=== PATIENT | male | born 1950 | race Caucasian/White ===

== ENCOUNTER 2023-04-18 17:01 | Emergency (ER) | payer OTHER ==
--- OUTSIDE RECORDS SUMMARY | 2023-04-18 17:05 | XMS REPORT | Continuity of Care Document ---
:1950 Author Organization [facility] t Address [address] [place] [address] [id number] Care Team Providers Name Role Phone Troy Sánchez DO Darek Primary Care Physician [phone] GC_[email or web address]_Gonzalo_ Attending Clinician Unavailable Nereida WONG, Kassi Uribe Attending Clinician [phone] Jb WONG, Michelle Attending Clinician GC_GCEDWARD_Gonzalo_ Admitting Clinician Unavailable Quang WONG, Kamari Unavailable Payers Payer Name Policy Type Policy Number Effective Date Expiration Date S ource $00 C [id number] 2020 00:00:00 Problems Condition Condition Condition Status Onset Resolution Last Treating Co mments Source Name Details Category Date Date Treatment Clinician Date COVID-19 COVID-19 81075-5 Active 2021-04-12 Quang, (U07.1) 04-12 18:27:59 Kamari (079.89)Pr 00:00: ognosis: 00 Encounter start time: 546Encount er end time: 551 as of 1Onset: MD Kamari Sierra Allergies, Adverse Reactions, Alerts Allergy Allergy Status Severity Reaction(s) Onset Inactive Treating Comm ents Source Name Type Date Date Clinician No Known Allergy Active Drug 04-12 Allergie 00:00: s 00 NO KNOWN [facility] Social History Social Habit Start Date Stop Date Quantity Comments Source History SDOH [facility] Alcohol Comment Medical C enter History SDOH [facility] Alcohol Std Drinks Medica [facility] Center History SDOH [facility] Alcohol Binge [facility] [address] No Known Social History Alcohol intake 2021-04-07 2021-04-07 [facility] (finding) Tobacco use and 2020-07-14 2020-07-[address] [facility] exposure 00:00:00 00:00:00 Medical Center History SDOH 2020-07-14 2020-07-[address] [facility] Alcohol Frequency 00:00:00 00:00:00 [facility] Center Sex Assigned At [address] [facility] 00:00:00 00:00:00 Medical Center Smoking Status Start Date Stop Date Source Tobacco smoking consumption unknown Never smoked tobacco [facility] Medications Ordered Filled Start Stop Current Ordering Indication Dosage Frequency Signature Comments Components Source Medication Medication Date Date Medication? Clinician (SIG) Name Name No Known No No Known Historical 04-12 Historical Medications 17:49: Medication 44 s benzonatate 2020- No 100mg Take [address] (TESSALON) 04-07- [facility] 100 MG 00:00: 23:59 (100 mg Medical capsule 00 :00 total) by Center mouth every 8 (eight) hours for 7 days. benzonatate 2020- No 100mg Take [address] (TESSALON) 04-07- [facility] 100 MG 00:00: 23:59 (100 mg Medical capsule 00 :00 total) by Center mouth every 8 (eight) hours for 7 days. AZITHROmyci 2020- No 250mg QD Take [address] [facility] 04-07 tablet [facility] (ZITHROMAX) 00:00: 23:59 (250 mg Me dical 250 MG 00 :00 total) by Center tablet mouth daily for 5 days Take first 2 tablets together, then 1 every day until finished.. AZITHROmyci No 250mg QD Take [address] [facility] 04-07 tablet [facility] (ZITHROMAX) 00:00: 23:59 (250 mg Me dical 250 MG 00 :00 total) by Center tablet mouth daily for 5 days Take first 2 tablets together, then 1 every day until finished.. promethazin No 25mg Take [address] [facility] [facility] 04[facility] tablet (25 [facility] (PHENERGAN) 00:00: 23:59 mg total) Medical 25 MG 00 :00 by mouth Center tablet every 8 (eight) hours as needed for Nausea for up to 5 days. promethazin No 25mg Take [address] [facility] [facility] 04-[facility] tablet (25 [facility] (PHENERGAN) 00:00: 23:59 mg total) Medical 25 MG 00 :00 by mouth Center tablet every 8 (eight) hours as needed for Nausea for up to 5 days. Vital Signs Vital Name Observation Time Observation Value Comments Source Pulse 2021-04-12 18:18:45 81 /min Pattern: Regular O2 SAT 2021-04-12 18:18:45 93 % Room air HEIGHT 2021-04-07 20:08:00 157.5 cm WEIGHT 2021-04-07 20:08:00 58.968 kg HEIGHT 2021-04-07 20:08:00 157.5 cm WEIGHT 2021-04-07 20:08:00 58.968 kg HEIGHT 2021-04-02 23:55:00 157.5 cm WEIGHT 2021-04-02 23:55:00 58.968 kg HEIGHT 2021-04-02 23:55:00 157.5 cm WEIGHT 2021-04-02 23:55:00 58.968 kg HEIGHT 2020-07-14 00:00:00 158 cm WEIGHT 2020-07-14 00:00:00 58.06 kg Systolic blood 2021-04-07 22:15:00 157 mm[Hg] ANTON Eddychi [facility] pressure Medical Center Diastolic blood 2021-04-07 22:15:00 93 mm[Hg] ANTON S t Caridadchi [facility] pressure Medical Center Oxygen saturation 2021-04-07 22:15:00 94 /min ANTON Castillo in Arterial blood Medical nter by Pulse oximetry Heart rate 2021-04-07 20:08:00 86 /min [facility] Body temperature 2021-04-07 20:08:00 36.5 Jordyn [facility] Respiratory rate 2021-04-07 20:08:00 18 /min [facility] Body height 2021-04-07 20:08:00 157.5 cm [facility] Body weight 2021-04-07 20:08:00 58.968 kg [facility] BMI 2021-04-07 20:08:00 23.78 kg/m2 [facility] Procedures Procedure Date / Time Performing Clinician Source Performed SERVICE(S) PROVIDED IN THE 2021-04-12 00:00:00 Kamari Del Rio OFFICE DURING REGULARLY SCHEDULED EVENING, WEEKEND, OR HOLIDAY OFFICE HOURS, IN ADDITION TO BASIC SERVICE ([id number]) PULSE OXIMETRY OF FINGER 2021-04-12 00:00:00 Kamari Del Rio ([id number]) URINALYSIS W/ REFLEX URINE 2021-04-07 21:43:00 Kassi Padron [facility] CULTURE [facility] CBC W/PLT COUNT & AUTO 2021-04-07 21:11:00 Kassi Padron [facility] COMPREHENSIVE METABOLIC 2021-04-07 21:11:00 Kassi Padron [facility] TROPONIN I 2021-04-07 21:11:00 Kassi Padron [facility] MAGNESIUM 2021-04-07 21:11:00 Kassi Padron [facility] CBC W/PLT COUNT & AUTO 2021-04-07 21:11:00 Kassi Padron [facility] XR CHEST 1 VIEW PORTABLE / 2021-04-07 21:02:00 Kassi Padron [facility] BEDSIDE [facility] ECG 12-LEAD 2021-04-07 20:48:53 Kassi Padron [facility] ED ECG INTERPRETATION 2021-04-07 20:44:58 Kassi Padron [facility] REPORT OF PROCEDURE - 2021-04-07 00:00:00 Provider, Default [facility] ENDOSCOPY SCAN Scanning [facility] ECG 12-LEAD 2021-04-03 01:44:52 Michelle Muhammad [facility] ECG 12-LEAD 2021-04-03 01:44:52 Unknown, Hl7 Doctor [facility] URINALYSIS W/ REFLEX URINE 2021-04-03 01:43:00 Michelle Muhammad [facility] CULTURE [facility] CBC W/PLT COUNT & AUTO 2021-04-03 01:30:00 Michelle Muhammad [facility] COMPREHENSIVE METABOLIC 2021-04-03 01:30:00 Jb [facility] PANEL [facility] Center MAGNESIUM 2021-04-03 01:30:[address] [facility] TROPONIN I 2021-04-03 01:30:[address] [facility] D-DIMER 2021-04-03 01:30:[address] [facility] CBC W/PLT COUNT & AUTO 2021-04-03 01:30:00 Michelle Muhammad [facility] XR CHEST 1 VIEW PORTABLE / 2021-04-03 00:45:00 Michelle Muhammad [facility] BEDSIDE [facility] Center REPORT OF PROCEDURE - 2021-04-02 00:00:00 Provider, Guy [facility] ENDOSCOPY SCAN Scanning [facility] Plan of Care Planned Activity Planned Date Details Comments Source Future Scheduled 2023-07-[address] [facility] Test 00:00:00 (Season Ended) [code = [facility] Center INFLUENZA VACCINE (Season Ended)] Future Scheduled 2022-11-[address] [facility] Test 00:00:00 (12+) [code = Medical Center DEPRESSION SCREENING (12+)] Future Scheduled 2022-11-16 FALLS RISK SCREENING [facility] Test 00:00:00 [code = FALLS RISK Medical C enter SCREENING] Future Scheduled 2022-04-[address] [facility] Test 00:00:00 Counseling and Medical Cente r Screening (12+) [code = Tobacco Cessation Counseling and Screening (12+)] Future Scheduled 2021-11-17 MEDICARE ANNUAL [facility] Test 00:00:00 WELLNESS (YEAR 2 or Medical Center FIRST YEAR if no IPPE) [code = MEDICARE ANNUAL WELLNESS (YEAR 2 or FIRST YEAR if no IPPE)] Future Scheduled 2021-07-17 INFLUENZA VACCINE (#1) [facility]00 [code = INFLUENZA Medical Ce nter VACCINE (#1)] Future Scheduled 2021-07-17 INFLUENZA VACCINE (#1) [facility] 00:00:00 [code = INFLUENZA Medical Ce nter VACCINE (#1)] Future Scheduled 2020-11-[address] [facility] Test 00:00:00 (12+) [code = Medical Center DEPRESSION SCREENING (12+)] Future Scheduled 2020-11-16 FALLS RISK SCREENING [facility] Test 00:00:00 [code = FALLS RISK Medical C enter SCREENING] Future Scheduled 2020-11-16 Medicare IPPE (WELCOME [facility] 00:00:00 TO MEDICARE) [code = Medical Center Medicare IPPE (WELCOME TO MEDICARE)] Future Scheduled 2020-11-[address] [facility] Test 00:00:00 (12+) [code = Medical Center DEPRESSION SCREENING (12+)] Future Scheduled 2020-11-16 FALLS RISK SCREENING [facility] Test 00:00:00 [code = FALLS RISK Medical C enter SCREENING] Future Scheduled 2020-11-16 Medicare IPPE (WELCOME [facility] Test 00:00:00 TO MEDICARE) [code = Medical Center Medicare IPPE (WELCOME TO MEDICARE)] Future Scheduled 2015 PNEUMOCOCCAL 65+ YRS ([address] [facility] Test 00:00:00 - PCV) [code = Medical Cente r PNEUMOCOCCAL 65+ YRS (1 - PCV)] Future Scheduled 2015 PNEUMOCOCCAL 65+ YRS ([address] [facility] Test 00:00:00 of 1 - [id number]_Wrrhyny Medica l Center PCV13) [code = PNEUMOCOCCAL 65+ YRS (1 of 1 - [id number]_Rkumefq PCV13)] Future Scheduled 2015 PNEUMOCOCCAL 65+ YRS ([address] [facility] Test 00:00:00 of 1 - [id number]_Vhvppqd Medica l Center PCV13) [code = PNEUMOCOCCAL 65+ YRS (1 of 1 - [id number]_[id number] PCV13)] Future Scheduled 2000 SHINGLES VACCINES ([address] [facility] Test 00:00:00 2) [code = SHINGLES Medical Center VACCINES (1 of 2)] Future Scheduled 2000 SHINGLES VACCINES ([address] [facility] Test 00:00:00 2) [code = SHINGLES Medical Center VACCINES (1 of 2)] Future Scheduled 2000 SHINGLES VACCINES ([address] [facility] Test 00:00:00 2) [code = SHINGLES Medical Center VACCINES (1 of 2)] Future Scheduled 1969 DTAP/TDAP/TD VACCINES [facility] 00:00:00 (1 - Tdap) [code = Medical C enter DTAP/TDAP/TD VACCINES (1 - Tdap)] Future Scheduled 1969 DTAP/TDAP/TD VACCINES [facility] 00:00:00 (1 - Tdap) [code = Medical C enter DTAP/TDAP/TD VACCINES (1 - Tdap)] Future Scheduled 1969 DTAP/TDAP/TD VACCINES [facility] Test 00:00:00 (1 - Tdap) [code = Medical C enter DTAP/TDAP/TD VACCINES (1 - Tdap)] Future Scheduled 1968 HEPATITIS C SCREENING [facility] 00:00:00 [code = HEPATITIS C Medical Center SCREENING] Future Scheduled 1968 HEPATITIS C SCREENING [facility] 00:00:00 [code = HEPATITIS C Medical Center SCREENING] Future Scheduled 1968 HEPATITIS C SCREENING [facility] 00:00:00 [code = HEPATITIS C Medical Center SCREENING] Future Scheduled 1962 COVID-19 VACCINE (1) [facility] Test 00:00:00 [code = COVID-[address] VACCINE (1)] Future Scheduled 1962 COVID-19 VACCINE (1) [facility] Test 00:00:00 [code = COVID-[address] VACCINE (1)] Future Scheduled 1950 COVID-19 VACCINE (#1) [facility] 00:00:00 [code = COVID-[address] VACCINE (#1)] Future Scheduled 1950 CT Colonography (combo) [facility] Test 00:00:00 [code = CT Colonography [facility] (combo)] Future Scheduled 1950 Screening for malignant [facility] Test 00:00:00 neoplasm of colon Medical Ce nter (procedure) [code = 451197961] Future Scheduled 1950 Screening for malignant [facility] Test 00:00:00 neoplasm of colon Medical Ce nter (procedure) [code = 819515049] Future Scheduled 1950 Screening for malignant [facility] Test 00:00:00 neoplasm of colon Medical Ce nter (procedure) [code = 729831648] Future Scheduled 1950 Screening for malignant [facility] Test 00:00:00 neoplasm of colon Medical Ce nter (procedure) [code = 206865719] Future Scheduled 1950 Sigmoidoscopy [code = [facility]00 Sigmoidoscopy] Medical Cente r Future Scheduled 1950 Screening for malignant [facility] Test 00:00:00 neoplasm of colon Medical Ce nter (procedure) [code = 387720556] Future Scheduled 1950 Screening for malignant [facility] Test 00:00:00 neoplasm of colon Medical Ce nter (procedure) [code = 295339962] Encounters Start End Encounter Admission Attending Care Care Encounter Source Date/Time Date/Time Type Type Clinicians Facility Department ID 2022-02-08 Outpatient [facility] [id number] [place] 14:11:19 [id number] [facility] 2023-03-01 2023-03-01 Outpatient GC_GCFMAC_H PRIV PRIV [id number] [facility] 00:00:00 00:00:00 allbauer_ [id number] [facility] 2021-04-12 2021-04-12 Virtual 0 Telehealth [id number] 552 17:43:18 18:28:09 Visit 43 2021-04-07 2021-04-[address] [facility] [id number] 20:22[facility]00 22:47:00 [facility]-04-[facility] 2021-04-07 Emergency ER [facility] Emergency [id number] [facility] 19:52:00 19:52:00 2021-04-02 2021-04-03 Emergency ER Jb, [facility] [id number] 23:58:00 04:48:00 Michelle [facility] 2021-04-03 2021-04-[address] [facility] [id number] 00:00:00 00:00:00 Only [facility] 2021-04-02 2021-04-02 Emergency ER [facility] Emergency [id number] [facility] 23:48:00 23:48:00 2021-04-02 2021-04-02 Travel [facility] [id number] [facility] 00:[facility]:00 00:00:00 [facility] 2020-07-14 2020-07-14 Emergency ER [facility] Emergency [id number] [facility] 14:51:00 14:51:00 Results Test Description Test Time Test Comments Results Result Comments Source Rapid covid antigen swab (07070) 2021-04-12 00:00:00 Test Item Value Reference Range Interpretation Comme nts Rapid covid antigen swab (test code = 16514-4) Positive N Urinalysis w/Microscopic + Reflex to [id number] 22:24:00 Test Item Value Reference Range Interpretation Comments Color, UA (test code Yellow = 5778-6) Clarity, UA (test Hazy code = 5767-9) Specific [place], UA 1.026 1.001-1.035 (test code = 5811-5) pH, UA (test code = 6.0 5.0-8.0 5803-2) Protein, UA (test >500 mg/dL Negative A code = 81853-0) Glucose, UA (test Negative Negative code = 365) Ketones, UA (test 80 mg/dL Negative A code = 2514-8) Bilirubin, UA (test Negative Negative code = 33313-1) Blood, UA (test code Negative Negative = 14239-3) Nitrite, UA (test Negative Negative code = 5802-4) Leukocytes, UA (test Negative Negative code = 5799-2) Urobilinogen, UA 2.0 mg/dL 0.2-1.0 H (test code = 11421-9) RBC, UA (test code = 1 See_Comment [Autom ated 27670-5) message] The system which generated this result transmit thad reference range : /HPF. The reference range was not used to interpret this result as normal/abnormal . WBC, UA (test code = 3 See_Comment [Autom ated 5821-4) message] The system which generated this result transmit thad reference range : /HPF. The reference range was not used to interpret this result as normal/abnormal . Bacteria, UA (test Rare code = 83519-4) Mucus (test code = Many 8247-9) Squam Epithel, UA <1 See_Comment [Automate d (test code = 13275-9) messag e] The system which generated this result transmit thad reference range : /HPF. The reference range was not used to interpret this result as normal/abnormal . Specimen Source (test code = 2795) IONA (test code = IONA) Portable Canteen Operator ID - [auto]Portable Canteen Operator ID - tech Lab Interpretation Abnormal (test code = 65965-4) [facility] + Reflex to Culture 2021-04-07 22:24:00 Test Item Value Reference Range Interpretation Comments Color, UA (test code Yellow = 5778-6) Clarity, UA (test Hazy code = 5767-9) Specific [place], UA 1.026 1.001-1.035 (test code = 5811-5) pH, UA (test code = 6.0 5.0-8.0 5803-2) Protein, UA (test >500 mg/dL Negative A code = 73718-8) Glucose, UA (test Negative Negative code = 365) Ketones, UA (test 80 mg/dL Negative A code = 2514-8) Bilirubin, UA (test Negative Negative code = 52032-1) Blood, UA (test code Negative Negative = 98230-9) Nitrite, UA (test Negative Negative code = 5802-4) Leukocytes, UA (test Negative Negative code = 5799-2) Urobilinogen, UA 2.0 mg/dL 0.2-1.0 H (test code = 34650-1) RBC, UA (test code = 1 See_Comment [Autom ated 73846-2) message] The system which generated this result transmit thad reference range : /HPF. The reference range was not used to interpret this result as normal/abnormal . WBC, UA (test code = 3 See_Comment [Autom ated 5821-4) message] The system which generated this result transmit thad reference range : /HPF. The reference range was not used to interpret this result as normal/abnormal . Bacteria, UA (test Rare code = 24523-9) Mucus (test code = Many 8247-9) Squam Epithel, UA <1 See_Comment [Automate d (test code = 57666-9) messag e] The system which generated this result transmit thad reference range : /HPF. The reference range was not used to interpret this result as normal/abnormal . Specimen Source (test code = 2795) IONA (test code = IONA) Portable Canteen Operator ID - [auto]Portable Canteen Operator ID - tech Lab Interpretation Abnormal (test code = 03465-1) [facility] [id number] 22:24:00 Test Item Value Reference Range Interpretation Comments COLOR (BEAKER) (test code = 470) Yellow CLARITY (BEAKER) (test code = 469) Hazy SPECIFIC GRAVITY UA (BEAKER) (test 1.026 1.001-1.035 code = 468) PH UA (BEAKER) (test code = 467) 6.0 5.0-8.0 PROTEIN UA (BEAKER) (test code = >500 mg/dL Negative A 464) GLUCOSE UA (BEAKER) (test code = Negative Negative 365) KETONES UA (BEAKER) (test code = 80 mg/dL Negative A 371) BILIRUBIN UA (BEAKER) (test code = Negative Negative 462) BLOOD UA (BEAKER) (test code = Negative Negative 461) NITRITE UA (BEAKER) (test code = Negative Negative 465) LEUKOCYTE ESTERASE UA (BEAKER) Negative Negative (test code = 466) UROBILINOGEN UA (BEAKER) (test 2.0 mg/dL 0.2-1.0 H code = 463) RBC UA (BEAKER) (test code = 519) 1 /HPF WBC UA (BEAKER) (test code = 520) 3 /HPF BACTERIA (BEAKER) (test code = Rare 517) MUCUS (BEAKER) (test code = 1574) Many SQUAMOUS EPITHELIAL (BEAKER) (test < /HPF code = 516) SOURCE(BEAKER) (test code = 2795) Portable Canteen Operator ID - [auto]Portable Canteen Operator ID - techCBC with platelet count + automated diff 2021-04-07 21:53:00 Test Item Value Reference Range Interpretation Comments WBC (test code = 8.2 See_Comment [Automated 0890-2) message] The system which generated this result transmit thad reference range : 4.0 - 10.0 K/ L. The reference range was not u sed to interpret th is result as normal/abnormal . RBC (test code = 4.84 See_Comment [Automated 789-8) message] The system which generated this result transmit thad reference range : 4.20 - 5.80 M/ L. The reference range was not u sed to interpret th is result as normal/abnormal . MCHC (test code = 34.3 See_Comment [Automate d 786-4) message] The system which generated this result transmit thad reference range : 32.0 - 36.0 GM/ DL. The reference range was not u sed to interpret th is result as normal/abnormal . Hematocrit (test code 43.2 % 36.0-50.0 = 4544-3) MCV (test code = 89.3 fL 82.0-99.0 787-2) MCH (test code = 30.6 pg 27.0-33.0 785-6) RDW (test code = 12.9 % 12.0-15.0 788-0) Platelets (test code 182 See_Comment [Autom ated = 777-3) message] The system which generated this result transmit thad reference range : 150 - 430 K/CU MM. The reference range was not u sed to interpret th is result as normal/abnormal . MPV (test code = 10.2 fL 6.0-11.5 92609-4) nRBC (test code = 0 See_Comment [Automate d 413) message] The system which generated this result transmit thad reference range : 0 - 0 /100 WBC. T he reference range was not used to interpret this result as normal/abnormal . % Neutros (test code 81 % = 429) % Lymphs (test code = 14 % 430) % Monos (test code = 5 % 431) % Eos (test code = 0 % 432) % Baso (test code = 0 % 437) # Neutros (test code 6.60 See_Comment [Autom ated = 670) message] The system which generated this result transmit thad reference range : 1.80 - 8.00 K/ L. The reference range was not u sed to interpret th is result as normal/abnormal . # Lymphs (test code = 1.16 See_Comment L [Auto mated 414) message] The system which generated this result transmit thad reference range : 1.48 - 4.50 K/ L. The reference range was not u sed to interpret th is result as normal/abnormal . # Monos (test code = 0.39 See_Comment [Autom ated 415) message] The system which generated this result transmit thad reference range : 0.00 - 1.30 K/ L. The reference range was not u sed to interpret th is result as normal/abnormal . # Eos (test code = 0.00 See_Comment [Automat ed 416) message] The system which generated this result transmit thad reference range : 0.00 - 0.50 K/ L. The reference range was not u sed to interpret th is result as normal/abnormal . # Baso (test code = 0.01 See_Comment [Automa thad 417) message] The system which generated this result transmit thad reference range : 0.00 - 0.20 K/ L. The reference range was not u sed to interpret th is result as normal/abnormal . Immature 0 % 0-0 Granulocytes-Relative (test code = 2801) IONA (test code = IONA) Smear reviewed. Results confirmed. Lab Interpretation Abnormal (test code = 67351-2) [facility] + automated [id number] 21:53:00 Test Item Value Reference Range Interpretation Comments WBC (test code = 8.2 See_Comment [Automated 6690-2) message] The system which generated this result transmit thad reference range : 4.0 - 10.0 K/ L. The reference range was not u sed to interpret th is result as normal/abnormal . RBC (test code = 4.84 See_Comment [Automated 709-8) message] The system which generated this result transmit thad reference range : 4.20 - 5.80 M/ L. The reference range was not u sed to interpret th is result as normal/abnormal . MCHC (test code = 34.3 See_Comment [Automate d 786-4) message] The system which generated this result transmit thad reference range : 32.0 - 36.0 GM/ DL. The reference range was not u sed to interpret th is result as normal/abnormal . Hematocrit (test code 43.2 % 36.0-50.0 = 4544-3) MCV (test code = 89.3 fL 82.0-99.0 787-2) MCH (test code = 30.6 pg 27.0-33.0 785-6) RDW (test code = 12.9 % 12.0-15.0 788-0) Platelets (test code 182 See_Comment [Autom ated = 777-3) message] The system which generated this result transmit thad reference range : 150 - 430 K/CU MM. The reference range was not u sed to interpret th is result as normal/abnormal . MPV (test code = 10.2 fL 6.0-11.5 11602-0) nRBC (test code = 0 See_Comment [Automate d 413) message] The system which generated this result transmit thad reference range : 0 - 0 /100 WBC. T he reference range was not used to interpret this result as normal/abnormal . % Neutros (test code 81 % = 429) % Lymphs (test code = 14 % 430) % Monos (test code = 5 % 431) % Eos (test code = 0 % 432) % Baso (test code = 0 % 437) # Neutros (test code 6.60 See_Comment [Autom ated = 670) message] The system which generated this result transmit thad reference range : 1.80 - 8.00 K/ L. The reference range was not u sed to interpret th is result as normal/abnormal . # Lymphs (test code = 1.16 See_Comment L [Auto mated 414) message] The system which generated this result transmit thad reference range : 1.48 - 4.50 K/ L. The reference range was not u sed to interpret th is result as normal/abnormal . # Monos (test code = 0.39 See_Comment [Autom ated 415) message] The system which generated this result transmit thad reference range : 0.00 - 1.30 K/ L. The reference range was not u sed to interpret th is result as normal/abnormal . # Eos (test code = 0.00 See_Comment [Automat ed 416) message] The system which generated this result transmit thad reference range : 0.00 - 0.50 K/ L. The reference range was not u sed to interpret th is result as normal/abnormal . # Baso (test code = 0.01 See_Comment [Automa thad 417) message] The system which generated this result transmit thad reference range : 0.00 - 0.20 K/ L. The reference range was not u sed to interpret th is result as normal/abnormal . Immature 0 % 0-0 Granulocytes-Relative (test code = 2801) IONA (test code = IONA) Smear reviewed. Results confirmed. Lab Interpretation Abnormal (test code = 35850-4) [facility] W/PLT COUNT & AUTO [id number] 21:53:00 Test Item Value Reference Range Interpretation Comments WHITE BLOOD CELL COUNT (BEAKER) 8.2 K/ L 4.0-10.0 (test code = 775) RED BLOOD CELL COUNT (BEAKER) 4.84 M/ L 4.20-5.80 (test code = 761) HEMOGLOBIN (BEAKER) (test code = 14.8 GM/DL 13.0-16.8 410) HEMATOCRIT (BEAKER) (test code = 43.2 % 36.0-50.0 411) MEAN CORPUSCULAR VOLUME (BEAKER) 89.3 fL 82.0-99.0 (test code = 753) MEAN CORPUSCULAR HEMOGLOBIN 30.6 pg 27.0-33.0 (BEAKER) (test code = 751) MEAN CORPUSCULAR HEMOGLOBIN CONC 34.3 GM/DL 32.0-36.0 (BEAKER) (test code = 752) RED CELL DISTRIBUTION WIDTH 12.9 % 12.0-15.0 (BEAKER) (test code = 412) PLATELET COUNT (BEAKER) (test 182 K/CU MM 150-430 code = 756) MEAN PLATELET VOLUME (BEAKER) 10.2 fL 6.0-11.5 (test code = 754) NUCLEATED RED BLOOD CELLS 0 /100 WBC 0-0 (BEAKER) (test code = 413) NEUTROPHILS RELATIVE PERCENT 81 % (BEAKER) (test code = 429) LYMPHOCYTES RELATIVE PERCENT 14 % (BEAKER) (test code = 430) MONOCYTES RELATIVE PERCENT 5 % (BEAKER) (test code = 431) EOSINOPHILS RELATIVE PERCENT 0 % (BEAKER) (test code = 432) BASOPHILS RELATIVE PERCENT 0 % (BEAKER) (test code = 437) NEUTROPHILS ABSOLUTE COUNT 6.60 K/ L 1.80-8.00 (BEAKER) (test code = 670) LYMPHOCYTES ABSOLUTE COUNT 1.16 K/ L 1.48-4.50 L (BEAKER) (test code = 414) MONOCYTES ABSOLUTE COUNT (BEAKER) 0.39 K/ L 0.00-1.30 (test code = 415) EOSINOPHILS ABSOLUTE COUNT 0.00 K/ L 0.00-0.50 (BEAKER) (test code = 416) BASOPHILS ABSOLUTE COUNT (BEAKER) 0.01 K/ L 0.00-0.20 (test code = 417) IMMATURE GRANULOCYTES-RELATIVE 0 % 0-0 PERCENT (BEAKER) (test code = 2801) Smear reviewed. Results confirmed.Comprehensive metabolic [id number] 21:45:00 Test Item Value Reference Range Interpretation Comments Protein, Total (test 7.6 See_Comment [Autom ated code = 2885-2) message] The system which generated this result transmit thad reference range : 6.0 - 8.5 gm/dL . The reference range was not u sed to interpret th is result as normal/abnormal . Albumin (test code = 3.6 g/dL 3.5-5.0 30706-4) Alkaline Phosphatase 46 U/L 30-115 (test code = 6768-6) Total Bilirubin (test 1.1 mg/dL 0.1-1.3 code = 1975-2) Sodium (test code = 133 meq/L 135-148 L 2951-2) Potassium (test code 4.7 meq/L 3.5-5.5 = 2823-3) Chloride (test code = 93 meq/L 98-106 L 5-0) CO2 (test code = 27 meq/L 20-31 8-9) BUN (test code = 14 mg/dL 10-26 3094-0) Creatinine (test code 0.80 mg/dL 0.50-1.20 = 2160-0) Glucose (test code = 96 mg/dL 70-110 2345-7) Calcium (test code = 9.1 mg/dL 8.5-10.5 66641-0) AST (test code = 60 U/L 5-40 H 1920-8) ALT (test code = 49 U/L 6-50 1742-6) EGFR (test code = 95 mL/min/1.[place] [address]-8) NOT ACCURATE CREATININE CLEARANCE IN PREDICTING GLOMERULAR FILTRATION RATE . ESTIMATED GFR I S NOT APPLICABLE FOR DIALYSIS PATIEN TS. IONA (test code = IONA) Portable Canteen Operator ID - [id number] Lab Interpretation Abnormal (test code = 02249-0) [id number]00 Test Item Value Reference Range Interpretation Comments Magnesium (test code = 2.2 mg/dL 1.5-3.0 28892-4) IONA (test code = IONA) Portable Canteen Operator ID - [id number] Lab Interpretation (test Normal code = 62515-7) [facility] [id number] 21:45:00 Test Item Value Reference Range Interpretation Comments Troponin I (test code = 0.04 ng/mL 0.00-0.15 92221-3) IONA (test code = IONA) Troponin I (TnI) levels must be interpreted in the context of the presenting symptoms and the clinical findings. Elevated TnI levels indicate myocardial damage, but are not specific for ischemic heart disease. Elevated TnI levels are seen in patients with other cardiac conditions (including myocarditis and congestive heart failure), and slight TnI elevations occur in patients with other conditions, including sepsis, renal failure, acidosis, acute neurological disease, and persistent tachyarrhythmia.Opera tor ID - [id number] Lab Interpretation (test Normal code = 56450-8) [facility] [id number] 21:45:00 Test Item Value Reference Range Interpretation Comments Protein, Total (test 7.6 See_Comment [Autom ated code = 2885-2) message] The system which generated this result transmit thad reference range : 6.0 - 8.5 gm/dL . The reference range was not u sed to interpret th is result as normal/abnormal . Albumin (test code = 3.6 g/dL 3.5-5.0 82149-9) Alkaline Phosphatase 46 U/L 30-115 (test code = 6768-6) Total Bilirubin (test 1.1 mg/dL 0.1-1.3 code = 1975-2) Sodium (test code = 133 meq/L 135-148 L 2951-2) Potassium (test code 4.7 meq/L 3.5-5.5 = 2823-3) Chloride (test code = 93 meq/L 98-106 L 5-0) CO2 (test code = 27 meq/L 20-31 8-9) BUN (test code = 14 mg/dL 10-26 3094-0) Creatinine (test code 0.80 mg/dL 0.50-1.20 = 2160-0) Glucose (test code = 96 mg/dL 70-110 2345-7) Calcium (test code = 9.1 mg/dL 8.5-10.5 32666-2) AST (test code = 60 U/L 5-40 H 192-8) ALT (test code = 49 U/L 6-50 1742-6) EGFR (test code = 95 mL/min/1.[place] [address]-7) NOT ACCURATE CREATININE CLEARANCE IN PREDICTING GLOMERULAR FILTRATION RATE . ESTIMATED GFR I S NOT APPLICABLE FOR DIALYSIS PATIEN TS. IONA (test code = IONA) Portable Canteen Operator ID - [id number] Lab Interpretation Abnormal (test code = 85314-2) [facility] 21:45:00 Test Item Value Reference Range Interpretation Comments Magnesium (test code = 2.2 mg/dL 1.5-3.0 04536-6) IONA (test code = IONA) Portable Canteen Operator ID - [id number] Lab Interpretation (test Normal code = 60949-9) [facility] [id number] 21:45:00 Test Item Value Reference Range Interpretation Comments Troponin I (test code = 0.04 ng/mL 0.00-0.15 78003-1) IONA (test code = IONA) Troponin I (TnI) levels must be interpreted in the context of the presenting symptoms and the clinical findings. Elevated TnI levels indicate myocardial damage, but are not specific for ischemic heart disease. Elevated TnI levels are seen in patients with other cardiac conditions (including myocarditis and congestive heart failure), and slight TnI elevations occur in patients with other conditions, including sepsis, renal failure, acidosis, acute neurological disease, and persistent tachyarrhythmia.Opera tor ID - [id number] Lab Interpretation (test Normal code = 63161-0) [facility] [id number] 21:45:00 Test Item Value Reference Range Interpretation Comments TOTAL PROTEIN 7.6 gm/dL 6.0-8.5 (BEAKER) (test code = 770) ALBUMIN (BEAKER) 3.6 g/dL 3.5-5.0 (test code = 1145) ALKALINE PHOSPHATASE 46 U/L 30-115 (BEAKER) (test code = 346) BILIRUBIN TOTAL 1.1 mg/dL 0.1-1.3 (BEAKER) (test code = 377) SODIUM (BEAKER) (test 133 meq/L 135-148 L code = 381) POTASSIUM (BEAKER) 4.7 meq/L 3.5-5.5 (test code = 379) CHLORIDE (BEAKER) 93 meq/L 98-106 L (test code = 382) CO2 (BEAKER) (test 27 meq/L 20-31 code = 355) BLOOD UREA NITROGEN 14 mg/dL 10-26 (BEAKER) (test code = 354) CREATININE (BEAKER) 0.80 mg/dL 0.50-1.20 (test code = 358) GLUCOSE RANDOM 96 mg/dL 70-110 (BEAKER) (test code = 652) CALCIUM (BEAKER) 9.1 mg/dL 8.5-10.5 (test code = 697) AST (SGOT) (BEAKER) 60 U/L 5-40 H (test code = 353) ALT (SGPT) (BEAKER) 49 U/L 6-50 (test code = 347) EGFR (BEAKER) (test 95 mL/min/1.73 ESTIMA THAD GFR IS code = 1092) sq m NOT ACCURATE CREATININE CLEARANCE IN PREDICTING GLOMERULAR FILTRATION RATE . ESTIMATED GFR I S NOT APPLICABLE FOR DIALYSIS PATIEN TS. Portable Canteen Operator ID - [id number] 21:45:00 Test Item Value Reference Range Interpretation Comments MAGNESIUM (BEAKER) (test code = 2.2 mg/dL 1.5-3.0 627) Portable Canteen Operator ID - [id number] 21:45:00 Test Item Value Reference Range Interpretation Comments TROPONIN I (BEAKER) (test code = 0.04 ng/mL 0.00-0.15 397) Troponin I (TnI) levels must be interpreted in the context of the presenting symptoms and the clinical findings. Elevated TnI levels indicate myocardial damage, but are not specific for ischemic heart disease. Elevated TnI levels are seen in patients with other cardiac conditions (including myocarditis and congestive heart failure), and slight TnI elevations occur in patients with other conditions, including sepsis, renal failure, acidosis, acute neurological disease, and persistent tachyarrhythmia.Portable Canteen Operator ID - [id number], CHEST, 1 VIEW, NON [id number] 21:18:00Reason for exam:->coughShould this be performed at the bedside?->Yes [facility] 1950 Sex: MFINAL REPORT History: Cough. Comparison: 04/03/2021 Findings: A single view of the chest is submitted. The cardiomediastinal contours are unremarkable. There is vague opacity overlying the right lateral mid to upper lung and in the bilateral infrahilar lungs. The appearance is nonspecific but may reflect multifocal pneumonitis given the patient's clinical history. Viral infection is a consideration. There is no dense focal consolidation, pneumothorax, large pleural effusion, evidence of overt pulmonary edema or acute bony abnormality. Signed: Bryn Cardenas Verified Date/Time: 04/07/2021 21:18:53 URINALYSIS W/ REFLEX URINE [id number] 02:43:00 Test Item Value Reference Range Interpretation Comments COLOR (BEAKER) (test code = 470) Yellow CLARITY (BEAKER) (test code = 469) Hazy SPECIFIC GRAVITY UA (BEAKER) (test 1.026 1.001-1.035 code = 468) PH UA (BEAKER) (test code = 467) 5.0 5.0-8.0 PROTEIN UA (BEAKER) (test code = 100 mg/dL Negative A 464) GLUCOSE UA (BEAKER) (test code = Negative Negative 365) KETONES UA (BEAKER) (test code = 20 mg/dL Negative A 371) BILIRUBIN UA (BEAKER) (test code = Negative Negative 462) BLOOD UA (BEAKER) (test code = 461) Negative Negative NITRITE UA (BEAKER) (test code = Negative Negative 465) LEUKOCYTE ESTERASE UA (BEAKER) Negative Negative (test code = 466) UROBILINOGEN UA (BEAKER) (test code < mg/dL 0.2-1.0 = 463) RBC UA (BEAKER) (test code = 519) 1 /HPF WBC UA (BEAKER) (test code = 520) 2 /HPF MUCUS (BEAKER) (test code = 1574) Many SQUAMOUS EPITHELIAL (BEAKER) (test < /HPF code = 516) SOURCE(BEAKER) (test code = 2795) Portable Canteen Operator ID - [auto]Portable Canteen Operator ID - Keith [id number] 02:13:00 Test Item Value Reference Range Interpretation Comments TROPONIN I (BEAKER) (test code = 0.06 ng/mL 0.00-0.15 397) Troponin I (TnI) levels must be interpreted in the context of the presenting symptoms and the clinical findings. Elevated TnI levels indicate myocardial damage, but are not specific for ischemic heart disease. Elevated TnI levels are seen in patients with other cardiac conditions (including myocarditis and congestive heart failure), and slight TnI elevations occur in patients with other conditions, including sepsis, renal failure, acidosis, acute neurological disease, and persistent tachyarrhythmia.Portable Canteen Operator ID - [id number] METABOLIC [id number] 02:07:00 Test Item Value Reference Range Interpretation Comments TOTAL PROTEIN 7.3 gm/dL 6.0-8.5 (BEAKER) (test code = 770) ALBUMIN (BEAKER) 3.8 g/dL 3.5-5.0 (test code = 1145) ALKALINE PHOSPHATASE 43 U/L 30-115 (BEAKER) (test code = 346) BILIRUBIN TOTAL 0.9 mg/dL 0.1-1.3 (BEAKER) (test code = 377) SODIUM (BEAKER) (test 130 meq/L 135-148 L code = 381) POTASSIUM (BEAKER) 3.7 meq/L 3.5-5.5 (test code = 379) CHLORIDE (BEAKER) 92 meq/L 98-106 L (test code = 382) CO2 (BEAKER) (test 28 meq/L 20-31 code = 355) BLOOD UREA NITROGEN 15 mg/dL 10-26 (BEAKER) (test code = 354) CREATININE (BEAKER) 0.90 mg/dL 0.50-1.20 (test code = 358) GLUCOSE RANDOM 98 mg/dL 70-110 (BEAKER) (test code = 652) CALCIUM (BEAKER) 8.5 mg/dL 8.5-10.5 (test code = 697) AST (SGOT) (BEAKER) 46 U/L 5-40 H (test code = 353) ALT (SGPT) (BEAKER) 40 U/L 6-50 (test code = 347) EGFR (BEAKER) (test 83 mL/min/1.73 ESTIMA THAD GFR IS code = 1092) sq m NOT ACCURATE CREATININE CLEARANCE IN PREDICTING GLOMERULAR FILTRATION RATE . ESTIMATED GFR I S NOT APPLICABLE FOR DIALYSIS PATIEN TS. Portable Canteen Operator ID - [id number] 02:07:00 Test Item Value Reference Range Interpretation Comments MAGNESIUM (BEAKER) (test code = 2.0 mg/dL 1.5-3.0 627) Portable Canteen Operator ID - [id number] W/PLT COUNT & AUTO [id number] 01:58:00 Test Item Value Reference Range Interpretation Comments WHITE BLOOD CELL COUNT (BEAKER) 3.5 K/ L 4.0-10.0 L (test code = 775) RED BLOOD CELL COUNT (BEAKER) 4.90 M/ L 4.20-5.80 (test code = 761) HEMOGLOBIN (BEAKER) (test code = 15.1 GM/DL 13.0-16.8 410) HEMATOCRIT (BEAKER) (test code = 43.8 % 36.0-50.0 411) MEAN CORPUSCULAR VOLUME (BEAKER) 89.4 fL 82.0-99.0 (test code = 753) MEAN CORPUSCULAR HEMOGLOBIN 30.8 pg 27.0-33.0 (BEAKER) (test code = 751) MEAN CORPUSCULAR HEMOGLOBIN CONC 34.5 GM/DL 32.0-36.0 (BEAKER) (test code = 752) RED CELL DISTRIBUTION WIDTH 12.6 % 12.0-15.0 (BEAKER) (test code = 412) PLATELET COUNT (BEAKER) (test 116 K/CU MM 150-430 L code = 756) MEAN PLATELET VOLUME (BEAKER) 10.6 fL 6.0-11.5 (test code = 754) NUCLEATED RED BLOOD CELLS 0 /100 WBC 0-0 (BEAKER) (test code = 413) NEUTROPHILS RELATIVE PERCENT 51 % (BEAKER) (test code = 429) LYMPHOCYTES RELATIVE PERCENT 37 % (BEAKER) (test code = 430) MONOCYTES RELATIVE PERCENT 11 % (BEAKER) (test code = 431) EOSINOPHILS RELATIVE PERCENT 0 % (BEAKER) (test code = 432) BASOPHILS RELATIVE PERCENT 0 % (BEAKER) (test code = 437) NEUTROPHILS ABSOLUTE COUNT 1.82 K/ L 1.80-8.00 (BEAKER) (test code = 670) LYMPHOCYTES ABSOLUTE COUNT 1.32 K/ L 1.48-4.50 L (BEAKER) (test code = 414) MONOCYTES ABSOLUTE COUNT (BEAKER) 0.38 K/ L 0.00-1.30 (test code = 415) EOSINOPHILS ABSOLUTE COUNT 0.00 K/ L 0.00-0.50 (BEAKER) (test code = 416) BASOPHILS ABSOLUTE COUNT (BEAKER) 0.01 K/ L 0.00-0.20 (test code = 417) IMMATURE GRANULOCYTES-RELATIVE 0 % 0-0 PERCENT (BEAKER) (test code = 2801) [id number] 01:55:00 Test Item Value Reference Range Interpretation Comments D-Dimer, Quant (test 0.70 See_Comment HH [Autom ated code = 39547-2) message] The system which generated this result transmitted reference range : <0.50 MG/L FEU. The reference range was not used to interpr et this result as normal/abnormal . IONA (test code = IONA) Intended Use: The D-Dimer Assay can be used to aid in the diagnosis of Deep Vein Thrombosis (DVT) and Pulmonary Embolism Disease (PED).In patients with low pre-test probability, various studies concerning STA Liatest D-dimer test have reported that with a cutoff value of 0.50 MG/L FEU, the Negative Predictive Value (NPV) regarding the exclusion of thrombosis is within 95-100% range. Lab Interpretation Abnormal (test code = 48503-9) [facility]-[id number] 01:55:00 Test Item Value Reference Range Interpretation Comments D-Dimer, Quant (test 0.70 See_Comment HH [Autom ated code = 41088-5) message] The system which generated this result transmitted reference range : <0.50 MG/L FEU. The reference range was not used to interpr et this result as normal/abnormal . IONA (test code = IONA) Intended Use: The D-Dimer Assay can be used to aid in the diagnosis of Deep Vein Thrombosis (DVT) and Pulmonary Embolism Disease (PED).In patients with low pre-test probability, various studies concerning STA Liatest D-dimer test have reported that with a cutoff value of 0.50 MG/L FEU, the Negative Predictive Value (NPV) regarding the exclusion of thrombosis is within 95-100% range. Lab Interpretation Abnormal (test code = 53386-1) [id number] 01:55:00 Test Item Value Reference Range Interpretation Comments D-DIMER QUANTITATIVE (BEAKER) 0.70 MG/L FEU <0.50 (test code = 671) Intended Use: The D-Dimer Assay can be used to aid in the diagnosis of Deep Vein Thrombosis (DVT) and Pulmonary Embolism Disease (PED).In patients with low pre- test probability, various studies concerning STA Liatest D-dimer test have reported that with a cutoff value of 0.50 MG/L FEU, the Negative Predictive Value (NPV) regarding the exclusion of thrombosis is within 95-100% range.RAD, CHEST, 1 VIEW, NON [id number] 00:56:00Reason for exam:->sob, covidShould this be performed at the bedside?->Yes [facility] : 1950 Sex: MFINAL REPORT History: "Shortness of breath, COVID." Comparison: 07/14/2020 Findings: A single view of the chest is submitted. The cardiomediastinal contours are unremarkable. The lung volumes are slightly low. Blunting of the left costophrenic sulcus may reflect atelectasis or a trace effusion. Curvilinear opacities in the lung bases suggest atelectasis. There is no focal consolidation, worrisome groundglass opacity, pneumothorax or evidence of overt pulmonary edema. There is no acute bony abnormality. Signed: Bryn Cardenas Verified Date/Time: 04/03/2021 00:56:05 RAD, RIBS, [id number] 16:08:00 Reason for exam:->RIB INJURYFINAL REPORT History: Chest pain, possible rib injury or fracture. FINDINGS: Rib series, five views: Multiple views of the left chest wall and rib cage show no fractures or acute immanuel ne abnormalities. No lytic or blastic bone lesions are identified. Alignment appears normal. No pleural effusion or pneumothorax. The heart and mediastinum are unremarkable. Mild diffuse increased interstitial lung markings are present, likely chronic. IMPRESSION: 1. No acute rib or chest wall abnormalities. Signed: Susie Arana Verified Date/Time: 07/14/2020 16:08:41 Reading Location: [address] Reading Room Notes Date/Time Note Provider Source 2021-12-16 20:30:29-00:00 BASIC COVID INFORMATION FOR TELE VISITSIndication:COVID-art: [id number] Type: Provider Instructions for Treatment 2021-12-16 20:30:29-00:00 COVID information handout for patients awaiting test results - EnglishIndication:COVID-art: [id number] Type: Patient Education
[2023-04-18] MEDS ORDERED: Ringers Lactate 1,000 ML IV ONE (18:03)
[2023-04-18 18:09] LABS: Absolute Lymphocytes (CBC) 2.1 K/uL (0.7-4.9); Hematocrit 47.1 % (39.6-49.0); Lymphocytes % 16.9 % (15.3-44.8); MCV 91.6 fL (80-100); MPV 8.7 fL (7.6-11.3); RBC Red Blood Cell Count 5.14 M/uL (4.33-5.43)
[2023-04-18 18:13] LABS: Protime INR 0.95
[2023-04-18 18:26] LABS: Albumin 4.2 g/dL (3.4-5.0); Bilirubin Direct 0.2 mg/dL (0-0.2); Bilirubin Indirect, Calculated 0.8 mg/dL (0.2-0.8); Magnesium 2.4 mg/dL (1.6-2.4); Potassium 3.8 mEq/L (3.5-5.1); Protein, Total 8.4 g/dL (6.4-8.2)
[2023-04-18 18:29] LABS: Troponin High Sensitivity 110.9 pg/mL (<58.9)
--- NOTE | 2023-04-18 19:07 | RAD REPORT ---
EXAM DESCRIPTION: RAD - Chest Single View - 04/18/2023 6:57 pm CLINICAL HISTORY: syncope COMPARISON: No comparisons FINDINGS: Lines: None. Lungs: No evidence of edema or pneumonia. Pleural: No significant pleural effusions or pneumothorax. Cardiac: The heart size is within normal limits. Mediastinum: Within normal limits. Bones: No acute fractures. Other: None IMPRESSION: No acute cardiopulmonary disease.
--- NOTE | 2023-04-18 19:26 | RAD REPORT ---
EXAM DESCRIPTION: CT - CTHCSPWOC - 04/18/2023 7:16 pm CLINICAL HISTORY: Trauma, head and neck injury. syncope, fall COMPARISON: No comparisons TECHNIQUE: Axial 5 mm thick images of the head were obtained. Axial 2 mm thick images of the cervical spine were obtained with sagittal and coronal reconstruction images generated and reviewed. All CT scans are performed using dose optimization technique as appropriate and may include automated exposure control or mA/KV adjustment according to patient size. FINDINGS: CT HEAD WITHOUT CONTRAST: No acute hemorrhage, hydrocephalus or extra-axial collection is identified.No areas of brain edema or midline shift. The paranasal sinuses and mastoids are clear.The calvarium is intact. CT CERVICAL SPINE WITHOUT CONTRAST: No fracture or subluxation.No prevertebral soft tissues swelling is identified. IMPRESSION: No acute intracranial or cervical spine findings.
[2023-04-18] MEDS ORDERED: ASPIRIN 81 MG CHEWABLE TABLET ONE (21:03)
--- NOTE | 2023-04-18 21:04 | EDPHYS ---
Physician Documentation [facility] Name: Babatunde Chen Age: 73 yrs Sex: Male : 1950 Arrival Date: 04/18/2023 Time: 17:01 Bed 14 Private MD: ED Physician Efrain Portillo HPI: 04/18 17:33 This 73 yrs old Male presents to ER via EMS with complaints of Syncope. [facility] 17:33 Onset: The symptoms/episode began/occurred acutely. jmm 17:33 This is a 73-year-old male with history of hypertension the presents emerged part with [facility] a syncopal episode which occurred today while kayaking. Patient states that after getting out he collapsed. Denies any chest pain. Denies chest pain or shortness of breath. States having similar episode in the past.. Historical: - Allergies: 18:05 No Known Allergies; jl7 - Home Meds: 18:05 unknown med [Active]; jl7 - PMHx: 18:05 Hypertensive disorder; jl7 - Immunization history:: Adult Immunizations unknown. - Social history:: Smoking status: Patient denies any tobacco usage or history of. ROS: 17:33 Constitutional: Negative for fever, chills, and weight loss, Cardiovascular: Negative jm for chest pain, palpitations, and edema, Respiratory: Negative for shortness of breath, cough, wheezing, and pleuritic chest pain. 17:33 Neuro: Positive for syncope. 17:33 All other systems are negative. Exam: 17:33 Constitutional: This is a well developed, well nourished patient who is awake, alert, jmm and in no acute distress. Head/Face: atraumatic. Eyes: EOMI, no conjunctival erythema appreciated ENT: Moist Mucus Membranes Neck: Trachea midline, Supple Chest/axilla: Normal chest wall appearance and motion. Cardiovascular: Regular rate and rhythm. No edema appreciated Respiratory: Normal respirations, no respiratory distress appreciated Abdomen/GI: Non distended Back: Normal ROM Skin: General appearance color normal MS/ Extremity: Moves all extremities, no obvious deformities appreciated, no edema noted to the lower extremities Neuro: Awake and alert Psych: Behavior is normal, Mood is normal, Patient is cooperative and pleasant Vital Signs: 17:44 BP 139 / 89; Pulse 84; Resp 15; Temp 97.9; Pulse Ox 99% ; Weight 68.95 kg; Height 5 ft. jl7 2 in. ; Pain 0/10; 18:24 BP 131 / 86; Pulse 84; Resp 18; Pulse Ox 99% on R/A; kr3 20:00 BP 159 / 94; Pulse 89; Resp 18; Pulse Ox 99% on R/A; kr3 20:48 BP 164 / 97; Pulse 86; Resp 18; Pulse Ox 98% on R/A; kr3 21:13 BP 158 / 94; Pulse 94; Resp 18; Pulse Ox 98% on R/A; kr3 17:44 Body Mass Index 27.80 (68.95 kg, 157.48 cm) jl7 17:44 Pain Scale: Adult jl7 MDM: 17:33 Patient medically screened. [facility] 21:00 Differential Diagnosis: cerebrovascular accident, transient ischemic attack, vasovagal [facility] episode, ACS, heart failure. Data reviewed: vital signs, nurses notes. Consideration of Admission/Observation Escalation of care including admission/observation considered. 21:00 I considered the following discharge prescriptions or medication management in the [facility] emergency department Medications were administered in the Emergency Department. See MAR. Counseling: I had a detailed discussion with the patient and/or guardian regarding: the historical points, exam findings, and any diagnostic results supporting the discharge/admit diagnosis, lab results, radiology results, the need for further work-up and treatment in the hospital, the need to transfer to another facility. ED course: Patient states feeling much better. I discussed troponin elevation with the patient along with the need for admission for further evaluation. Patient refused. I was able to convince the patient to get a repeat troponin. The troponin level was elevated from the previous. I again recommended inpatient. Patient did not want to be admitted and wanted to go home because he felt cold. Patient states he had a similar episode in [place] that revealed a negative catheterization. I discussed this also with the patient's family whom agreed that the patient needed to be admitted. I told the patient as well as the family, since they are from the [facility] and that I will transfer the patient to a more convenient hospital for them. Patient again refused. Patient and family were made aware that this could possibly be the beginning of a cardiac event and could leave him with lifelong deficits or possibly even . They understood, the patient understood as well.. 04/18 17:34 Order name: Basic Metabolic Panel; Complete Time: 18:40 [facility] 04/18 17:34 Order name: CBC with Diff; Complete Time: 18:14 [facility] 04/18 17:34 Order name: LFT's; Complete Time: 18:40 [facility] 04/18 17:34 Order name: Magnesium; Complete Time: 18:40 [facility] 04/18 17:34 Order name: NT PRO-BNP; Complete Time: 18:40 [facility] 04/18 17:34 Order name: PT-INR; Complete Time: 18:14 [facility] 04/18 17:34 Order name: Troponin HS; Complete Time: 18:40 [facility] 04/18 19:59 Order name: Troponin High Sensitivity: repeat; Complete Time: 20:53 [facility] 04/18 17:34 Order name: XRAY Chest (1 view); Complete Time: 19:14 [facility] 04/18 18:45 Order name: CT Head C Spine; Complete Time: 19:33 [facility] 04/18 17:34 Order name: EKG; Complete Time: 17:35 [facility] 04/18 17:34 Order name: Cardiac monitoring; Complete Time: 18:00 [facility] 04/18 17:34 Order name: EKG - Nurse/Tech; Complete Time: 18:00 [facility] 04/18 17:34 Order name: IV Saline Lock; Complete Time: 18:00 [facility] 04/18 17:34 Order name: Labs collected and sent; Complete Time: 18:00 [facility] 04/18 17:34 Order name: O2 Per Protocol; Complete Time: 18:00 [facility] 04/18 17:34 Order name: O2 Sat Monitoring; Complete Time: 18:00 [facility] Administered Medications: 18:23 Drug: Lactated Ringers Solution IV 500 ml Route: IV; Rate: 500 bolus; Site: right kr3 antecubital; 21:16 Follow up: Response: No adverse reaction; IV Status: Completed infusion; IV Intake: kr3 500ml 21:01 Drug: Aspirin PO Chewable Tablet 324 mg Route: PO; kr3 21:16 Follow up: Response: No adverse reaction kr3 Disposition Summary: 04/18/23 21:03 Discharge Ordered Location: Home [facility] Condition: Stable [facility] Diagnosis - Syncope jm - Elevated troponin [facility] Followup: [facility] - With: Private Physician - When: Upon discharge from the Emergency Department - Reason: Recheck today's complaints, Continuance of care, Re-evaluation by your physician Discharge Instructions: - Discharge Summary Sheet jmm - Syncope jmm - Troponin Test [facility] Forms: - Medication Reconciliation Form [facility] - Thank You Letter jimmy - Antibiotic Education jimmy - Prescription Opioid Use jimmy Signatures: Dispatcher [employer] EDSteve Loyd PA PA jmm Leal, Jahala RN RN jl7 Sindhu Cortes RN RN kr3 Corrections: (The following items were deleted from the chart) 18:06 18:05 Home Meds: uknoedgarn htn med; jl7 jl7
--- NOTE | 2023-04-18 21:04 | ER ---
Nurse's Notes [facility] Name: Babatunde Chen Age: 73 yrs Sex: Male : 1950 Arrival Date: 04/18/2023 Time: 17:01 Bed 14 Private MD: Diagnosis: Syncope;Elevated troponin Presentation: 04/18 17:44 Chief complaint: EMS states: Pt was kayaking, got out of kayak and had syncopal jl7 episode, was disoriented on EMS arrival, bgl 155 A\T\Ox4 on arrival toED. 17:44 Coronavirus screen: At this time, the client does not indicate any symptoms associated jl7 with coronavirus-19. Ebola Screen: No symptoms or risks identified at this time. Initial Sepsis Screen: Does the patient meet any 2 criteria? No. Patient's initial sepsis screen is negative. Does the patient have a suspected source of infection? No. Patient's initial sepsis screen is negative. Risk Assessment: Do you want to hurt yourself or someone else? Patient reports no desire to harm self or others. Onset of symptoms is unknown. Care prior to arrival: Glucose check: 155. 17:44 Method Of Arrival: EMS: [facility] jl7 17:44 Acuity: MAI 3 jl7 Triage Assessment: 18:05 General: Appears in no apparent distress. uncomfortable, Behavior is calm, cooperative, jl7 appropriate for age. Pain: Denies pain. Neuro: Level of Consciousness is awake, alert, obeys commands, Oriented to person, place, time, situation. Cardiovascular: Patient's skin is warm and dry. Respiratory: Airway is patent Respiratory effort is even, unlabored, Respiratory pattern is regular, symmetrical. Derm: Skin is pink, warm \T\ dry. Historical: - Allergies: 18:05 No Known Allergies; jl7 - Home Meds: 18:05 unknown med [Active]; jl7 - PMHx: 18:05 Hypertensive disorder; jl7 - Immunization history:: Adult Immunizations unknown. - Social history:: Smoking status: Patient denies any tobacco usage or history of. Screenin:16 [facility] ED Fall Risk Assessment (Adult) History of falling in the last 3 months, kr3 including since admission No falls in past 3 months (0 pts) Confusion or Disorientation No (0 pts) Intoxicated or Sedated No (0 pts) Impaired Gait No (0 pts) Mobility Assist Device Used No (0 pt) Altered Elimination No (0 pt) Score/Fall Risk Level 0 - 2 = Low Risk. Abuse screen: Denies threats or abuse. Nutritional screening: No deficits noted. Tuberculosis screening: No symptoms or risk factors identified. Assessment: 18:23 General: Appears in no apparent distress. comfortable, Behavior is calm, cooperative, kr3 appropriate for age. Pain: Denies pain. Neuro: Level of Consciousness is awake, alert, obeys commands, Oriented to person, place, time, situation. Cardiovascular: Reports Patient's skin is warm and dry. Respiratory: Airway is patent Respiratory effort is even, unlabored, Respiratory pattern is regular, symmetrical. GI: No signs and/or symptoms were reported involving the gastrointestinal system. : No signs and/or symptoms were reported regarding the genitourinary system. EENT: No signs and/or symptoms were reported regarding the EENT system. Derm: No signs and/or symptoms reported regarding the dermatologic system. Vital Signs: 17:44 BP 139 / 89; Pulse 84; Resp 15; Temp 97.9; Pulse Ox 99% ; Weight 68.95 kg; Height 5 ft. jl7 2 in. ; Pain 0/10; 18:24 BP 131 / 86; Pulse 84; Resp 18; Pulse Ox 99% on R/A; kr3 20:00 BP 159 / 94; Pulse 89; Resp 18; Pulse Ox 99% on R/A; kr3 20:48 BP 164 / 97; Pulse 86; Resp 18; Pulse Ox 98% on R/A; kr3 21:13 BP 158 / 94; Pulse 94; Resp 18; Pulse Ox 98% on R/A; kr3 17:44 Body Mass Index 27.80 (68.95 kg, 157.48 cm) jl7 17:44 Pain Scale: Adult jl7 ED Course: 17:33 Patient arrived in ED. eb 17:33 Steve Jarrett PA is PHCP. jmm 17:33 Efrain Portillo MD is Attending Physician. [facility] 17:44 Patient has correct armband on for positive identification. Client placed on continuous jl7 cardiac and pulse oximetry monitoring. NIBP monitoring applied. 17:44 Initial lab(s) drawn, by me, sent to lab. EKG done, by ED staff, reviewed by Steve COTO. Inserted saline lock: 20 gauge in right antecubital area, using aseptic technique. Blood collected. 18:05 Triage completed. jl7 18:06 Arm band placed on right wrist. jl7 18:23 Sindhu Cortes, RN is Primary Nurse. kr3 18:59 XRAY Chest (1 view) In Process Unspecified. EDMS 19:18 CT Head C Spine In Process Unspecified. EDMS 20:53 Notified Nurse Practitioner and/or Physician Bpm Developer of a critical lab result(s), kr3 troponin 267.8. 21:17 No provider procedures requiring assistance completed. IV discontinued, intact, kr3 bleeding controlled, No redness/swelling at site. Pressure dressing applied. Administered Medications: 18:23 Drug: Lactated Ringers Solution IV 500 ml Route: IV; Rate: 500 bolus; Site: right kr3 antecubital; 21:16 Follow up: Response: No adverse reaction; IV Status: Completed infusion; IV Intake: kr3 500ml 21:01 Drug: Aspirin PO Chewable Tablet 324 mg Route: PO; kr3 21:16 Follow up: Response: No adverse reaction kr3 Medication: 21:17 VIS not applicable for this client. kr3 Intake: 21:16 IV: 500ml; Total: 500ml. kr3 Outcome: 21:03 Discharge ordered by . jimmy 21:17 Discharged to home ambulatory. kr3 21:17 Condition: stable 21:17 Discharge instructions given to patient, family, Instructed on discharge instructions, follow up and referral plans. Demonstrated understanding of instructions, follow-up care. 21:17 Patient left the ED. kr3 Signatures: Dispatcher [employer] EDMS Steve Jarrett PA PA jmm Leal, Jahala, RN RN [email or web address] Chantelle Romero Kelley, RN RN kr3 Corrections: (The following items were deleted from the chart) 18:06 18:05 Home Meds: uknown htn med; raji jlAlyx 20:54 20:53 Notified Nurse Practitioner and/or Physician Bpm Developer of a critical lab kr3 result(s), troponin 257.8 kr3
[2023-04-18 23:14] VITALS: TEMP 97.9
[2023-04-18 23:18] VITALS: O2SAT 98
[2023-04-18 23:19] VITALS: BP 158/94
--- NOTE | 2023-04-19 14:18 | EKG ---
Test Date: 2023-04-18 Test Time: 17:51:04 [employer]: MARSHA MEASUREMENT RESULTS: Intervals: Rate: 85 PA: 156 QRSD: 102 QT: 384 QTc: 456 [place]: P: 73 PA: 156 QRS: 65 T: 47 INTERPRETIVE STATEMENTS: Normal sinus rhythm with sinus arrhythmia Normal ECG No previous ECG available for comparison Electronically Signed On 04-19-23 14:16:45 CDT by Reno Sahu
== END 2023-04-18 21:17 | disposition home or self-care (01) ==
LOC: ER 17:01
DX: R55 Syncope and collapse (principal); R74.8 Abnormal levels of other serum enzymes; I10 Essential (primary) hypertension
CPT/HCPCS: 96361; 93005; 85025; 80048; 36415; 83735; 85610; 80076; 84484 ×2; 83880; 70450; 72125; 71045; 96360; 99285; J7120